=== PATIENT | male | born 1945 | race Caucasian/White ===

== ENCOUNTER 2019-05-15 11:30 | Outpatient (REF) | payer MEDICARE, OTHER, SELFPAY ==
[2019-05-15 21:47] LABS: ALT 18 U/L (12-78); AST 28 U/L (15-37); Albumin 3.8 g/dL (3.4-5.0); Alkaline Phosphatase 105 U/L (46-116); Anion Gap 9.3 mmol/L (3-11); BUN 29 mg/dL (7-18); Bilirubin, Total 0.5 mg/dL (0.2-1.0); CO2 27.7 mmol/L (21.0-32.0); CREATININE 0.97 mg/dL (0.70-1.30); Calcium 9.1 mg/dL (8.5-10.1); Chloride 103 mmol/L (98-107); Glucose 173 mg/dL (70-100); Potassium 4.6 mmol/L (3.5-5.1); Sodium 140 mmol/L (136-145); Total Protein 7.6 g/dL (6.4-8.2)
== END 2019-05-15 11:50 ==
LOC: NCHCN 11:30
PROVIDERS: Visit Provider Nurse Practitioner Family
DX: E11.9 Type 2 diabetes mellitus without complications (principal); E78.5 Hyperlipidemia, unspecified; I48.91 Unspecified atrial fibrillation; R60.9 Edema, unspecified; M70.21 Olecranon bursitis, right elbow; Z86.79 Personal history of other diseases of the circulatory system; E66.9 Obesity, unspecified; F41.9 Anxiety disorder, unspecified
CPT/HCPCS: 80053

== ENCOUNTER 2020-05-27 10:02 | Outpatient (REF) | payer MEDICARE, OTHER, SELFPAY ==
[2020-05-27 21:32] LABS: ALT 26 U/L (16-63); AST 45 U/L (15-37); Albumin 3.5 g/dL (3.4-5.0); Alkaline Phosphatase 187 U/L (46-116); BUN 22 mg/dL (7-18); Bilirubin, Total 0.9 mg/dL (0.2-1.0); CREATININE 1.07 mg/dL (0.70-1.30); Calcium 9.1 mg/dL (8.5-10.1); Chloride 100 mmol/L (98-107); Glucose 307 mg/dL (74-106); Potassium 4.5 mmol/L (3.5-5.1); Sodium 135 mmol/L (136-145)
== END 2020-05-27 10:22 ==
LOC: NCHCN 10:02
PROVIDERS: Visit Provider Nurse Practitioner Family
DX: I48.91 Unspecified atrial fibrillation (principal); E11.9 Type 2 diabetes mellitus without complications; R60.9 Edema, unspecified; F41.9 Anxiety disorder, unspecified; E66.9 Obesity, unspecified; E78.5 Hyperlipidemia, unspecified; Z86.79 Personal history of other diseases of the circulatory system
CPT/HCPCS: 80053

== ENCOUNTER 2020-12-09 15:26 | Outpatient (REF) | payer MEDICARE, OTHER, SELFPAY ==
[2020-12-09 13:52] LABS: ALT 22 U/L (16-63); AST 27 U/L (15-37); Albumin 3.8 g/dL (3.4-5.0); Alkaline Phosphatase 135 U/L (46-116); Bilirubin, Total 0.7 mg/dL (0.2-1.0); GGT 273 U/L (15-85); Total Protein 8.2 g/dL (6.4-8.2)
[2020-12-09 14:03] LABS: Vitamin D 25 Total 45.2 ng/ml (30-100)
[2020-12-09 14:09] LABS: Bilirubin, Direct 0.23 mg/dL (0.00-0.20)
== END 2020-12-09 15:46 ==
LOC: NCHCN 15:26
PROVIDERS: Visit Provider Nurse Practitioner Family
DX: E11.9 Type 2 diabetes mellitus without complications (principal); I48.91 Unspecified atrial fibrillation; G60.9 Hereditary and idiopathic neuropathy, unspecified; E66.8 Other obesity; Z86.79 Personal history of other diseases of the circulatory system; F41.9 Anxiety disorder, unspecified; R74.01 Elevation of levels of liver transaminase levels; R60.0 Localized edema
CPT/HCPCS: 80076; 82306; 82977

== ENCOUNTER 2020-12-29 02:20 | Outpatient (CLI) | payer MEDICARE, OTHER, SELFPAY ==
--- NOTE | 2020-12-29 | DI.US_ITS ---
EXAM: US ABDOMEN CLINICAL HISTORY: ELEVATED ALK PHOS,R74.8 TECHNIQUE: Ultrasound abdomen performed using standard protocol. COMPARISON: No exams were available for comparison FINDINGS: ABDOMINAL AORTA AND IVC: Visualized portions normal caliber. PANCREAS: Normal where visualized. LIVER: There is mild heterogeneity to the echogenicity of the liver. The liver contour is mildly nod ular. The liver measures 11.7 cm in length. Hepatopedal flow in the Portal Vein. GALLBLADDER: No evidence of cholelithiasis. No evidence of wall thickening. No pericholecystic fluid identified. BILIARY SYSTEM: Common bile duct measures < 7 mm. No intrahepatic biliary ductal dilation. REESE'S SIGN: Negative. KIDNEYS: Kidneys are symmetric in size. No evidence of renal calculi. No evidence of hydronephrosis. No renal mass or cyst identified. SPLEEN: Not enlarged. ASCITES: None seen. IMPRESSION: Coarsened hepatic echotexture with mild nodularity of the hepatic contour. The findings raise a ques tion of hepatic cirrhosis. Please correlate clinically. DATA REPOSITORY:
== END 2020-12-29 02:21 | disposition home or self-care (01) ==
PROVIDERS: Visit Provider Nurse Practitioner Family
DX: R74.8 Abnormal levels of other serum enzymes (principal); K76.89 Other specified diseases of liver
CPT/HCPCS: 76700

== ENCOUNTER 2021-06-13 12:46 | Outpatient (REF) | payer MEDICARE, OTHER, SELFPAY ==
[2021-06-13 21:38] LABS: Abs Immature Grans 0.01 10^3/uL (0.0-0.06); Absolute Basophil Count 0.01 10^3/uL (0.0-0.2); Absolute Eosinophil Count 0.06 10^3/uL (0.0-0.7); Absolute Lymphocyte Count 0.98 10^3/uL (1.2-3.4); Absolute Monocyte Count 0.67 10^3/uL (0.1-0.8); Absolute Neutrophil Count 3.52 10^3/uL (1.2-6.7); Basophils % 0.2; Eosinophils % 1.1; HCT 40.2 % (40.0-50.0); HGB 13.2 g/dL (13.5-17.5); Immature Grans % 0.2; Lymphocytes % 18.7; MCH 31.8 pg (27.0-33.0); MCHC 32.8 % (32.0-36.0); MCV 96.9 fL (80-95); MPV 12.4 fL (8.0-11.0); Monocytes % 12.8; Nucleated RBC 0 %; Platelet Count 135 10^3/uL (130-400); RBC 4.15 10^6/uL (4.36-5.78); RDW 13.2 % (11.8-14.1); RDW-SD 47.1 fL; WBC 5.25 10^3/uL (4.4-10.8)
[2021-06-13 22:10] LABS: ALT 18 U/L (16-63); AST 25 U/L (15-37); Albumin 3.8 g/dL (3.4-5.0); Alkaline Phosphatase 118 U/L (46-116); Anion Gap 6.5 mmol/L (3-11); BUN 29 mg/dL (7-18); Bilirubin, Total 0.4 mg/dL (0.2-1.0); CO2 28.5 mmol/L (21.0-32.0); CREATININE 1.1 mg/dL (0.70-1.30); Calcium 9.2 mg/dL (8.5-10.1); Chloride 104 mmol/L (98-107); Glucose 134 mg/dL (74-106); Potassium 4.4 mmol/L (3.5-5.1); Sodium 139 mmol/L (136-145); Total Protein 7.8 g/dL (6.4-8.2)
== END 2021-06-13 12:47 | disposition home or self-care (01) ==
LOC: NCHCN 12:46
PROVIDERS: Visit Provider Nurse Practitioner Family
DX: K74.60 Unspecified cirrhosis of liver (principal); K22.70 Barrett's esophagus without dysplasia; R60.9 Edema, unspecified; E11.9 Type 2 diabetes mellitus without complications; F41.9 Anxiety disorder, unspecified; E78.5 Hyperlipidemia, unspecified; E66.9 Obesity, unspecified
CPT/HCPCS: 80053; 85025

== ENCOUNTER 2021-12-12 15:09 | Outpatient (REF) | payer MEDICARE, OTHER, SELFPAY ==
[2021-12-12 20:29] LABS: Abs Immature Grans 0.01 10^3/uL (0.0-0.06); Absolute Basophil Count 0.02 10^3/uL (0.0-0.2); Absolute Eosinophil Count 0.06 10^3/uL (0.0-0.7); Absolute Lymphocyte Count 0.79 10^3/uL (1.2-3.4); Absolute Monocyte Count 0.63 10^3/uL (0.1-0.8); Absolute Neutrophil Count 4.03 10^3/uL (1.2-6.7); Basophils % 0.4; Eosinophils % 1.1; HCT 44.1 % (40.0-50.0); HGB 14.3 g/dL (13.5-17.5); Immature Grans % 0.2; Lymphocytes % 14.3; MCH 32.3 pg (27.0-33.0); MCHC 32.4 % (32.0-36.0); MCV 99.5 fL (80-95); MPV 11.9 fL (8.0-11.0); Monocytes % 11.4; Neutrophils % 72.6; Nucleated RBC 0 %; Platelet Count 186 10^3/uL (130-400); RBC 4.43 10^6/uL (4.36-5.78); RDW 12.5 % (11.8-14.1); RDW-SD 46.6 fL; WBC 5.54 10^3/uL (4.4-10.8)
[2021-12-12 21:31] LABS: ALT 22 U/L (16-63); AST 32 U/L (15-37); Alkaline Phosphatase 150 U/L (46-116); Anion Gap 9.1 mmol/L (3-11); BUN 32 mg/dL (7-18); Bilirubin, Total 0.6 mg/dL (0.2-1.0); CO2 28.9 mmol/L (21.0-32.0); CREATININE 1.1 mg/dL (0.70-1.30); Calcium 9.8 mg/dL (8.5-10.1); Chloride 97 mmol/L (98-107); Glucose 132 mg/dL (74-106); Magnesium 1.5 mg/dL (1.8-2.4); Potassium 3.7 mmol/L (3.5-5.1); Sodium 135 mmol/L (136-145); Total Protein 8.7 g/dL (6.4-8.2); Vitamin B12 181 pg/mL (193-986)
[2021-12-15 05:50] LABS: Vitamin D 25 Total 33.9 ng/mL (30-100)
== END 2021-12-12 15:10 | disposition home or self-care (01) ==
LOC: NCHCN 15:09
PROVIDERS: Visit Provider Nurse Practitioner Family
DX: R39.9 Unspecified symptoms and signs involving the genitourinary system (principal); E53.8 Deficiency of other specified B group vitamins; E11.9 Type 2 diabetes mellitus without complications; E66.9 Obesity, unspecified; K74.60 Unspecified cirrhosis of liver; I48.91 Unspecified atrial fibrillation
CPT/HCPCS: 80053; 82306; 82607; 83735; 85025

== ENCOUNTER 2021-12-26 14:49 | Outpatient (REF) | payer MEDICARE, OTHER, SELFPAY ==
[2021-12-26 21:48] LABS: Anion Gap 6.9 mmol/L (3-11); BUN 20 mg/dL (7-18); CO2 31.1 mmol/L (21.0-32.0); Calcium 9.4 mg/dL (8.5-10.1); Chloride 96 mmol/L (98-107); Glucose 137 mg/dL (74-106); Potassium 4.1 mmol/L (3.5-5.1); Sodium 134 mmol/L (136-145)
== END 2021-12-26 14:50 | disposition home or self-care (01) ==
LOC: NCHCN 14:49
PROVIDERS: Visit Provider Nurse Practitioner Family
DX: E87.1 Hypo-osmolality and hyponatremia (principal); E83.42 Hypomagnesemia
CPT/HCPCS: 80048

== ENCOUNTER 2022-04-28 20:05 | Outpatient (REF) | payer MEDICARE, OTHER, SELFPAY ==
[2022-04-28 20:43] LABS: Hemoglobin A1C 8.1 % (<5.7)
[2022-04-28 20:48] LABS: ALT 18 U/L (16-63); AST 46 U/L (15-37); Albumin 2.8 g/dL (3.4-5.0); Alkaline Phosphatase 283 U/L (46-116); Anion Gap 8.5 mmol/L (3-11); BUN 14 mg/dL (7-18); Bilirubin, Total 0.4 mg/dL (0.2-1.0); CO2 30.5 mmol/L (21.0-32.0); CREATININE 0.9 mg/dL (0.70-1.30); Calcium 8.8 mg/dL (8.5-10.1); Chloride 98 mmol/L (98-107); Glucose 91 mg/dL (74-106); NT-proBNP 939 pg/mL (<300); Potassium 3.6 mmol/L (3.5-5.1); Sodium 137 mmol/L (136-145); Total Protein 8.4 g/dL (6.4-8.2)
[2022-04-28 20:57] LABS: Bilirubin Negative (Negative); Blood Negative (Negative); Clarity Clear (Clear); Glucose Negative (Negative); Ketones Negative (Negative); Leukocyte Esterase Negative (Negative); Nitrite Negative (Negative); Specific Gravity 1.015 (1.005-1.025); Urobilinogen 0.2 EU/dL (Up TO 0.2); pH 6.5 (5-8)
[2022-04-28 22:34] LABS: COMMENT (LAB VIEW ONLY) < 13.00 mg/dL
== END 2022-04-28 20:06 | disposition home or self-care (01) ==
LOC: LBN 20:05
PROVIDERS: Visit Provider Nurse Practitioner Family
DX: E87.1 Hypo-osmolality and hyponatremia (principal); E11.9 Type 2 diabetes mellitus without complications
CPT/HCPCS: 80053; 81003; 82043; 82570; 83036; 83880

== ENCOUNTER 2022-05-18 15:42 | Outpatient (REF) | payer MEDICARE, OTHER, SELFPAY ==
[2022-05-18 17:39] LABS: Anion Gap 7.4 mmol/L (3-11); BUN 23 mg/dL (7-18); CO2 28.6 mmol/L (21.0-32.0); Calcium 8.9 mg/dL (8.5-10.1); Chloride 99 mmol/L (98-107); Glucose 157 mg/dL (74-106); Potassium 4.1 mmol/L (3.5-5.1); Sodium 135 mmol/L (136-145)
== END 2022-05-18 15:43 | disposition home or self-care (01) ==
LOC: NCHCN 15:42
PROVIDERS: Visit Provider Nurse Practitioner Family
DX: I50.9 Heart failure, unspecified (principal)
CPT/HCPCS: 80048

== ENCOUNTER 2022-08-07 15:12 | Outpatient (REF) | payer MEDICARE, OTHER, SELFPAY ==
[2022-08-07 21:03] LABS: Anion Gap 8.3 mmol/L (3-11); BUN 22 mg/dL (7-18); CO2 26.7 mmol/L (21.0-32.0); Calcium 8.6 mg/dL (8.5-10.1); Chloride 102 mmol/L (98-107); Creatine Kinase 75 U/L (39-308); Estimated GFR 76.56 (mL/min/1.73m2); Glucose 67 mg/dL (74-106); Magnesium 1.8 mg/dL (1.8-2.4); NT-proBNP 1015 pg/mL (<300); Potassium 3.7 mmol/L (3.5-5.1); Sodium 137 mmol/L (136-145)
[2022-08-07 21:43] LABS: Vitamin B12 857 pg/mL (193-986)
== END 2022-08-07 15:13 | disposition home or self-care (01) ==
LOC: NCHCN 15:12
PROVIDERS: Visit Provider Nurse Practitioner Family
DX: I50.9 Heart failure, unspecified (principal); E87.1 Hypo-osmolality and hyponatremia; E83.42 Hypomagnesemia; E53.8 Deficiency of other specified B group vitamins; I48.91 Unspecified atrial fibrillation; K74.60 Unspecified cirrhosis of liver; K22.70 Barrett's esophagus without dysplasia; R39.89 Other symptoms and signs involving the genitourinary system
CPT/HCPCS: 80048; 82550; 82607; 83735; 83880

== ENCOUNTER 2022-08-29 16:23 | Outpatient (REF) | payer MEDICARE, OTHER, SELFPAY ==
[2022-08-29 19:37] LABS: Anion Gap 9.4 mmol/L (3-11); BUN 33 mg/dL (7-18); CO2 27.6 mmol/L (21.0-32.0); CREATININE 1.1 mg/dL (0.70-1.30); Calcium 8.9 mg/dL (8.5-10.1); Chloride 99 mmol/L (98-107); Estimated GFR 68.29 (mL/min/1.73m2); Glucose 134 mg/dL (74-106); Sodium 136 mmol/L (136-145)
== END 2022-08-29 16:24 | disposition home or self-care (01) ==
LOC: NCHCN 16:23
PROVIDERS: Visit Provider Nurse Practitioner Family
DX: I35.0 Nonrheumatic aortic (valve) stenosis (principal); I50.9 Heart failure, unspecified
CPT/HCPCS: 80048

== ENCOUNTER 2022-12-11 21:10 | Outpatient (REF) | payer MEDICARE, OTHER, SELFPAY ==
[2022-12-11 21:38] LABS: Abs Immature Grans 0.01 10^3/uL (0.0-0.06); Absolute Basophil Count 0.01 10^3/uL (0.0-0.2); Absolute Eosinophil Count 0.05 10^3/uL (0.0-0.7); Absolute Lymphocyte Count 0.67 10^3/uL (1.2-3.4); Absolute Monocyte Count 0.47 10^3/uL (0.1-0.8); Absolute Neutrophil Count 2.63 10^3/uL (1.2-6.7); Basophils % 0.3; Eosinophils % 1.3; HCT 30.3 % (40.0-50.0); HGB 9.8 g/dL (13.5-17.5); Immature Grans % 0.3; Lymphocytes % 17.4; MCHC 32.3 % (32.0-36.0); MCV 99 fL (80-95); MPV 12.1 fL (8.0-11.0); Monocytes % 12.2; Neutrophils % 68.5; Platelet Count 118 10^3/uL (130-400); RBC 3.06 10^6/uL (4.36-5.78); RDW 14.1 % (11.8-14.1); WBC 3.84 10^3/uL (4.4-10.8)
[2022-12-11 21:44] LABS: ALT 15 U/L (16-63); AST 28 U/L (15-37); Albumin 3.4 g/dL (3.4-5.0); Alkaline Phosphatase 162 U/L (46-116); Anion Gap 4.6 mmol/L (3-11); BUN 34 mg/dL (7-18); Bilirubin, Total 0.5 mg/dL (0.2-1.0); CO2 30.4 mmol/L (21.0-32.0); CREATININE 1.1 mg/dL (0.70-1.30); Calcium 8.7 mg/dL (8.5-10.1); Chloride 98 mmol/L (98-107); Estimated GFR 68.29 (mL/min/1.73m2); Glucose 187 mg/dL (74-106); Potassium 4.4 mmol/L (3.5-5.1); Sodium 133 mmol/L (136-145); Total Protein 8.2 g/dL (6.4-8.2)
== END 2022-12-11 21:11 | disposition home or self-care (01) ==
LOC: NCHCN 21:10
PROVIDERS: Visit Provider Nurse Practitioner Family
DX: K74.60 Unspecified cirrhosis of liver (principal); E87.1 Hypo-osmolality and hyponatremia; E53.8 Deficiency of other specified B group vitamins; R74.8 Abnormal levels of other serum enzymes
CPT/HCPCS: 80053; 85025

== ENCOUNTER 2022-12-18 14:05 | Outpatient (REF) | payer MEDICARE, OTHER, SELFPAY ==
--- OUTSIDE RECORDS SUMMARY | 2022-12-18 14:06 | XMS_ITS | CCD ---
:1945 Author Care Team Providers Name Role Phone JAREN OLVERA Attending Physician Unavailable Vital Signs Unknown or Not Available. Allergies Unknown or Not Available. Procedures Unknown or Not Available. History of Immunizations Unknown or Not Available. Problems Problem Code Start Date Resolved Date Status AFIB 80050852 Active Hypertension 90386449 Active Pneumonia 025513305 Active Acute kidney injury 07519503 Active Influenza 2158960 Active CHF 22437837 Active Type 2 diabetes 50023422 Active Gout 25462646 Active Hyperlipidemia 86418359 03/12/2022 Resolved GERD 910943120 03/12/2022 Resolved CHF 55621625 03/12/2022 Resolved Stroke 528530037 03/12/2022 Resolved Results Unknown or Not Available. Active Medications Unknown or Not Available. Medications Administered During Visit Unknown or Not Available. Encounters Encounter Diagnosis Diagnosis Code Start Date Cirrhosis of liver 21478782 12/27/2021 Social History Smoking Status Code Start Date End Date Never smoker [id number] Patient Decision Aids Unknown or Not Available. Discharge Instructions You were admitted to [facility] on 12/27/2021 07:43 with a principal diagnosis of Unspecified cirrhosis of liver You were discharged from [facility] on 12/27/2021 07:43 Should you have any questions prior to d ischarge, please contact a member of your healthcare team. If you have left the spital and have any questions, please contact your primary care physician. Chief Complaint and Reason For Visit Chief Complaint Date of Onset CIRRHOSIS Function Status Description Code Date Type Status Age-related cognitive decline 733480457 03/12/2022 Cognitive Active Plan of Care Unknown or Not Available. Referral/Transition of Care Unknown or Not Available.
--- OUTSIDE RECORDS SUMMARY | 2022-12-18 14:07 | XMS_ITS | CCD ---
:1945 Author Care Team Providers Name Role Phone SONG REY Attending Physician Unavailable Vital Signs Unknown or Not Available. Allergies Allergy Code Allergy Type Reaction Status No Known Drug Allergies 0 No known drug allergies Active Procedures Unknown or Not Available. History of Immunizations Unknown or Not Available. Problems Problem Code Start Date Resolved Date Status AFIB 64408823 Active Hypertension 18726783 Active Pneumonia 401225027 Active Acute kidney injury 30361988 Active Influenza 4994802 Active CHF 46208190 Active Type 2 diabetes 80624519 Active Gout 74071771 Active Hyperlipidemia 31563970 03/12/2022 Resolved GERD 611434313 03/12/2022 Resolved CHF 01252448 03/12/2022 Resolved Stroke 716126198 03/12/2022 Resolved Results Unknown or Not Available. Active Medications Unknown or Not Available. Medications Administered During Visit Unknown or Not Available. Encounters Encounter Diagnosis Diagnosis Code Start Date Influenza due to identified novel influenza A virus with J09 X1 03/12/2022 pneumonia Social History Unknown or Not Available. Patient Decision Aids Unknown or Not Available. Discharge Instructions You were admitted to [facility] on 03/12/2022 13:37 with a principal diagnosis of Influenza due to identified novel inf luenza A virus with pneumonia You were discharged from [facility] on 03/12/2022 15:48 Should you have any questions prior to d ischarge, please contact a member of your healthcare team. If you have left the spital and have any questions, please contact your primary care physician. Chief Complaint and Reason For Visit Unknown or Not Available. Function Status Description Code Date Type Status Age-related cognitive decline 756973529 03/12/2022 Cognitive Active Plan of Care Unknown or Not Available. Referral/Transition of Care Unknown or Not Available.
--- OUTSIDE RECORDS SUMMARY | 2022-12-18 14:07 | XMS_ITS | CCD ---
:1945 Author Care Team Providers Name Role Phone SHAMEKA HOFFMAN Attending Physician Unavailable Vital Signs Vital Sign Value Unit Date/Time Recent/Initial? BP Systolic 106 mmHg 03/19/2022 17:00 Initial VS BP Diastolic 66 mmHg 03/19/2022 17:00 Initial VS Respiratory Rate 20 bpm 03/19/2022 17:00 Initial VS Heart Rate 106 bpm 03/19/2022 17:00 Initial VS O2 % BldC Oximetry 97 % 03/19/2022 17:00 Initi al VS Body Temperature 36 degrees 03/19/2022 17:00 Initial VS BP Systolic 107 mmHg 03/23/2022 09:12 Most Recent VS BP Diastolic 96 mmHg 03/23/2022 09:12 Most Recent VS Respiratory Rate 18 bpm 03/23/2022 09:12 Most Re cent VS Heart Rate 100 bpm 03/23/2022 09:12 Most Recent VS O2 % BldC Oximetry 98 % 03/23/2022 09:12 Most Recent VS Body Temperature 36.2 degrees 03/23/2022 09:12 Most Re cent VS Allergies Allergy Code Allergy Type Reaction Status No Known Drug Allergies 0 No known drug allergies Active Procedures Unknown or Not Available. History of Immunizations Unknown or Not Available. Problems Problem Code Start Date Resolved Date Status AFIB 90358281 Active Hypertension 35095164 Active Pneumonia 307508794 Active Acute kidney injury 83808252 Active Influenza 2520169 Active CHF 97557646 Active Type 2 diabetes 50490708 Active Gout 53575985 Active Results BASIC METABOLIC PANEL (BMP) - Collect Da te/Time: 03/23/2022 06:50 Test Name Code Test Result Test Units Test Ref Range GLUCOSE 2345-7 172 mg/dL L=70 H=116 BUN 3094-0 25 mg/dL L=6 H=25 CREATININE 2160-0 0.79 mg/dL L=0.67 H=1.17 SODIUM SERUM 2951-2 132 mmol/L L=136 H=145 POTASSIUM SERUM 2823-3 4.3 mmol/L L=3.4 H=5.2 CHLORIDE SERUM 2075-0 96 mmol/L L=96 H=110 CARBON DIOXIDE (CO2) 2028-9 29 mmol/L L=22 H= 34 ANION GAP 96166-2 6.8 mmol/L CALCIUM SERUM 04800-2 8.7 mg/dL L=8.2 H=10.2 AGE 76 years eGFR (non-Afr.Amer.) 27525-5 95 mL/min eGFR (Afr-[place]) 56319-9 115 mL/min BASIC METABOLIC PANEL (BMP) - Collect Da te/Time: 03/21/2022 06:30 Test Name Code Test Result Test Units Test Ref Range GLUCOSE 2345-7 263 mg/dL L=70 H=116 BUN 3094-0 27 mg/dL L=6 H=25 CREATININE 2160-0 0.83 mg/dL L=0.67 H=1.17 SODIUM SERUM 2951-2 130 mmol/L L=136 H=145 POTASSIUM SERUM 2823-3 4.7 mmol/L L=3.4 H=5.2 CHLORIDE SERUM 2075-0 96 mmol/L L=96 H=110 CARBON DIOXIDE (CO2) 2028-9 30 mmol/L L=22 H= 34 ANION GAP 89979-8 3.8 mmol/L CALCIUM SERUM 20112-0 8.6 mg/dL L=8.2 H=10.2 AGE 76 years eGFR (non-Afr.Amer.) 12760-1 90 mL/min eGFR (Afr-[place]) 47992-2 108 mL/min GLUCOSE FINGER/HEEL CAPILLARY - Collect Date/Time: 03/23/2022 07:48 Test Name Code Test Result Test Units Test Ref Range GLUCOSE CAP 187 mg/dL L=70 H=116 GLUCOSE FINGER/HEEL CAPILLARY - Collect Date/Time: 03/22/2022 20:40 Test Name Code Test Result Test Units Test Ref Range GLUCOSE CAP 208 mg/dL L=70 H=116 GLUCOSE FINGER/HEEL CAPILLARY - Collect Date/Time: 03/22/2022 16:40 Test Name Code Test Result Test Units Test Ref Range GLUCOSE CAP 252 mg/dL L=70 H=116 GLUCOSE FINGER/HEEL CAPILLARY - Collect Date/Time: 03/22/2022 11:28 Test Name Code Test Result Test Units Test Ref Range GLUCOSE CAP 258 mg/dL L=70 H=116 GLUCOSE FINGER/HEEL CAPILLARY - Collect Date/Time: 03/22/2022 07:51 Test Name Code Test Result Test Units Test Ref Range GLUCOSE CAP 200 mg/dL L=70 H=116 GLUCOSE FINGER/HEEL CAPILLARY - Collect Date/Time: 03/21/2022 19:48 Test Name Code Test Result Test Units Test Ref Range GLUCOSE CAP 299 mg/dL L=70 H=116 GLUCOSE FINGER/HEEL CAPILLARY - Collect Date/Time: 03/21/2022 16:56 Test Name Code Test Result Test Units Test Ref Range GLUCOSE CAP 258 mg/dL L=70 H=116 GLUCOSE FINGER/HEEL CAPILLARY - Collect Date/Time: 03/21/2022 11:58 Test Name Code Test Result Test Units Test Ref Range GLUCOSE CAP 235 mg/dL L=70 H=116 GLUCOSE FINGER/HEEL CAPILLARY - Collect Date/Time: 03/21/2022 07:45 Test Name Code Test Result Test Units Test Ref Range GLUCOSE CAP 277 mg/dL L=70 H=116 GLUCOSE FINGER/HEEL CAPILLARY - Collect Date/Time: 03/20/2022 20:36 Test Name Code Test Result Test Units Test Ref Range GLUCOSE CAP 273 mg/dL L=70 H=116 GLUCOSE FINGER/HEEL CAPILLARY - Collect Date/Time: 03/20/2022 17:01 Test Name Code Test Result Test Units Test Ref Range GLUCOSE CAP 264 mg/dL L=70 H=116 GLUCOSE FINGER/HEEL CAPILLARY - Collect Date/Time: 03/20/2022 11:49 Test Name Code Test Result Test Units Test Ref Range GLUCOSE CAP 180 mg/dL L=70 H=116 GLUCOSE FINGER/HEEL CAPILLARY - Collect Date/Time: 03/20/2022 08:16 Test Name Code Test Result Test Units Test Ref Range GLUCOSE CAP 244 mg/dL L=70 H=116 GLUCOSE FINGER/HEEL CAPILLARY - Collect Date/Time: 03/19/2022 21:07 Test Name Code Test Result Test Units Test Ref Range GLUCOSE CAP 177 mg/dL L=70 H=116 GLUCOSE FINGER/HEEL CAPILLARY - Collect Date/Time: 03/19/2022 17:06 Test Name Code Test Result Test Units Test Ref Range GLUCOSE CAP 223 mg/dL L=70 H=116 CBC W/ DIFFERENTIAL* - Collect Date/Time : 03/23/2022 06:50 Test Name Code Test Result Test Units Test Ref Range WBC 6690-2 11.60 th/cmm L=5.00 H=10.00 NEUT % 81.2 % L=40.0 H=80.0 LYMPH % 9.6 % L=10.0 H=50.0 MONO % 78884-2 8.1 % L=2.0 H=12.0 EOS % 0.1 % L=0.0 H=8.0 BASO % 0.1 % L=0.0 H=3.0 IG % 2514-8 0.9 % L=0.0 H=1.1 NRBC % 49832-8 0.0 % L=0.0 H=0.0 NEUT abs count 751-8 9.4 th/cmm L=1.6 H=8.4 LYMPH abs count 731-0 1.1 th/cmm L=1.5 H=4.0 MONO abs count 742-7 0.9 th/cmm L=0.2 H=1.0 EOS abs count 711-2 0.0 th/cmm L=0.0 H=0.5 BASO abs count 704-7 0.0 th/cmm L=0.0 H=0.2 IG abs count 82644-2 0.1 th/cmm L=0.0 H=0.1 NRBC abs count 97208-7 0.0 mil/cmm L=0.0 H=0.0 RBC 789-8 3.59 mil/cmm L=4.30 H=6.20 HEMOGLOBIN 718-7 11.6 gm/dL L=13.0 H=17.0 HEMATOCRIT 4544-3 35 % L=45 H=52 MCV 787-2 96 fL L=82 H=92 MCH 785-6 32.3 pg L=27.0 H=31.0 MCHC 786-4 33.6 % L=32.0 H=36.0 RDW-SD 788-0 49.0 fL L=39.0 H=49.0 PLATELET COUNT 777-3 353 th/cmm L=150 H=450 CBC W/ DIFFERENTIAL* - Collect Date/Time : 03/21/2022 06:30 Test Name Code Test Result Test Units Test Ref Range WBC 6690-2 11.69 th/cmm L=5.00 H=10.00 NEUT % 85.8 % L=40.0 H=80.0 LYMPH % 7.2 % L=10.0 H=50.0 MONO % 84000-8 5.5 % L=2.0 H=12.0 EOS % 0.1 % L=0.0 H=8.0 BASO % 0.1 % L=0.0 H=3.0 IG % 2514-8 1.3 % L=0.0 H=1.1 NRBC % 43889-3 0.0 % L=0.0 H=0.0 NEUT abs count 751-8 10.0 th/cmm L=1.6 H=8.4 LYMPH abs count 731-0 0.8 th/cmm L=1.5 H=4.0 MONO abs count 742-7 0.6 th/cmm L=0.2 H=1.0 EOS abs count 711-2 0.0 th/cmm L=0.0 H=0.5 BASO abs count 704-7 0.0 th/cmm L=0.0 H=0.2 IG abs count 28694-4 0.2 th/cmm L=0.0 H=0.1 NRBC abs count 07288-1 0.0 mil/cmm L=0.0 H=0.0 RBC 789-8 3.61 mil/cmm L=4.30 H=6.20 HEMOGLOBIN 718-7 11.5 gm/dL L=13.0 H=17.0 HEMATOCRIT 4544-3 35 % L=45 H=52 MCV 787-2 96 fL L=82 H=92 MCH 785-6 31.9 pg L=27.0 H=31.0 MCHC 786-4 33.2 % L=32.0 H=36.0 RDW-SD 788-0 48.4 fL L=39.0 H=49.0 PLATELET COUNT 777-3 306 th/cmm L=150 H=450 NGOZI COVID RHEONIX* - Collect Date/Adams e: 03/22/2022 14:00 Test Name Code Test Result Test Units Test Ref Range [facility]- 10429-4 INPATIENT/ED N/A SARS COV2 RNA: 81619-8 NEGATIVE N/A REFERENCE RAN GE: NEGAT Active Medications Medications Administered During Visit Medication Dose Units Frequency Route Date/Time of L ast Dose PANTOPRAZOLE TABLET: 40MG 40 MG Q7AM PO 03/23/2022 06:23 APIXABAN TAB: 5MG 5 MG BID PO 022 09:12 SERTRALINE TABLET: 100MG 100 MG DAILY PO 03/23/2022 09:12 PRAVASTATIN TABLET: 20MG 20 MG DAILY PO 03/23/2022 09:12 GLIMEPIRIDE TABLET: 2MG 2 MG DAILY WITH FOOD PO 03/23/2022 09:12 INSULIN INJ PEN LISPRO: PRN SUBQ 0 03/23/2022 09:24 300UNITS/3ML MetFORMIN TABLET: 850MG 850 MG BID PO 0 03/23/2022 09:12 PredniSONE TABLET: 20MG 20 MG BID PO 0 03/21/2022 08:35 COLCHICINE TABLET: 0.6MG 0.6 MG DAILY PO 03/21/2022 08:35 ACETAMINOPHEN TABLET: 975 MG TID PO 09:12 325MG INDOMETHACIN CAPSULE: 25MG 25 MG DAILY PO 03/21/2022 08:35 PredniSONE TABLET: 10MG 10 MG BID PO 0 03/23/2022 09:12 FUROSEMIDE TABLET: 20MG 20 MG X1 PO 0 03/22/2022 17:45 FUROSEMIDE TABLET: 20MG 20 MG DAILY PO 0 03/23/2022 09:12 Encounters Encounter Diagnosis Diagnosis Code Start Date Weakness R531 03/19/2022 Social History Smoking Status Code Start Date End Date Never smoker 407542681 Patient Decision Aids Unknown or Not Available. Discharge Instructions You were admitted to [facility] on 03/19/2022 10:42 with a principal diagnosis of Weakness You had the following tests done: GLUCO SE FINGER/HEEL CAPILLARY BASIC METABOLIC PANEL (BMP) CBC W/ DIFFERENTIAL* GLUCOSE FINGER/HEEL CAPILLARY GLUCOSE FINGER/HEEL CAPILLARY [facility] COVID RHEONIX* GLUCOSE FINGER/HEEL CAPILLARY GLUCOSE FINGER/HEEL CAPILLARY GLUCOSE FINGER/HEEL CAPILLARY GLUCOSE FINGER/HEEL CAPILLARY GLUCOSE FINGER/HEEL CAPILLARY GLUCOSE FINGER/THI L CAPILLARY BASIC METABOLIC PANEL (BMP) CBC W/ DIFFERENTIAL* GLUCOSE FINGER/HEEL CAP ILLARY GLUCOSE FINGER/HEEL CAPILLARY GLUCOSE FINGER/HEEL CAPILLARY GLUCOSE FINGER/THI L CAPILLARY GLUCOSE FINGER/HEEL CAPILLARY GLUCOSE FINGER/HEEL CAPILLARY You were discharged from [facility] on 03/23/2022 11:10 Should you have any questions prior to d ischarge, please contact a member of your healthcare team. If you have left the spital and have any questions, please contact your primary care physician. Chief Complaint and Reason For Visit Chief Complaint Date of Onset REHAB 03/20/2022 Function Status Description Code Date Type Status Age-related cognitive decline 478326960 03/12/2022 Cognitive Active Plan of Care Unknown or Not Available. Referral/Transition of Care Unknown or Not Available.
--- OUTSIDE RECORDS SUMMARY | 2022-12-18 14:07 | XMS_ITS | CCD ---
:1945 Author Care Team Providers Name Role Phone ELIJAH BARAKAT Attending Physician Unavailable Vital Signs Unknown or Not Available. Allergies Allergy Code Allergy Type Reaction Status No Known Drug Allergies 0 No known drug allergies Active Procedures Unknown or Not Available. History of Immunizations Unknown or Not Available. Problems Problem Code Start Date Resolved Date Status AFIB 67139972 Active Hypertension 40045442 Active Pneumonia 733849363 Active Acute kidney injury 21305040 Active Influenza 7119574 Active CHF 43788033 Active Type 2 diabetes 83236097 Active Gout 46977640 Active Hyperlipidemia 96218661 03/12/2022 Resolved GERD 952536937 03/12/2022 Resolved CHF 65123156 03/12/2022 Resolved Stroke 999850947 03/12/2022 Resolved Results Unknown or Not Available. Active Medications Unknown or Not Available. Medications Administered During Visit Unknown or Not Available. Encounters Encounter Diagnosis Diagnosis Code Start Date Influenza due to other identified influenza virus with J1000 03/12/2022 unspecified type of pneumonia Social History Smoking Status Code Start Date End Date Never smoker 982023641 Patient Decision Aids Unknown or Not Available. Discharge Instructions You were admitted to [facility] on 03/12/2022 00:26 with a principal diagnosis of Influenza due to other identified inf luenza virus with unspecified type of pneumonia You were discharged from [facility] on 03/19/2022 00:34 Should you have any questions prior to d ischarge, please contact a member of your healthcare team. If you have left the ho spital and have any questions, please contact your primary care physician. Chief Complaint and Reason For Visit Unknown or Not Available. Function Status Description Code Date Type Status Age-related cognitive decline 159743399 03/12/2022 Cognitive Active Plan of Care Unknown or Not Available. Referral/Transition of Care Unknown or Not Available.
--- OUTSIDE RECORDS SUMMARY | 2022-12-18 14:07 | XMS_ITS | CCD ---
[...] Code Start Date Resolved Date Status AFIB 35969871 Active Hypertension 16269392 Active Pneumonia 050467945 Active Acute kidney injury 77959341 Active Influenza 5458087 Active CHF 16824386 Active Type 2 diabetes 68008659 Active Gout 31596792 Active Results Unknown or Not Available. Active Medications Unknown or Not Available. Medications Administered During Visit Unknown or Not Available. Encounters Encounter Diagnosis Diagnosis Code Start Date Unspecified cirrhosis of liver K7460 Social History Smoking Status Code Start Date End Date Never smoker 763454395 Patient Decision Aids Unknown or Not Available. Discharge Instructions You were admitted to [facility] on 06/29/2022 08:32 with a principal diagnosis of Unspecified cirrhosis of liver You were discharged from [facility] on 06/29/2022 08:32 Should you have any questions prior to d ischarge, please contact a member of your healthcare team. If you have left the spital and have any questions, please contact your primary care physician. Chief Complaint and Reason For Visit Chief Complaint Date of Onset CIRRHOSIS Function Status Description Code Date Type Status Age-related cognitive decline 245499615 03/12/2022 Cognitive Active Plan of Care Unknown or Not Available. Referral/Transition of Care Unknown or Not Available.
--- OUTSIDE RECORDS SUMMARY | 2022-12-18 14:07 | XMS_ITS | CCD ---
:1945 Author Care Team Providers Name Role Phone ELIJAH BARAKAT Attending Physician Unavailable PHILIPPE PERES Er Physician 1 Unavailable SONG REY (Secondary) Physician UnavailROSHNI Li Registered Nurse Unavailable Vital Signs Vital Sign Value Unit Date/Time Recent/Initial? BMI (Body Mass Index) 27.2 kg/m^2 03/12/2022 14:24 In itial VS Weight Measured 211.86 lbs 03/12/2022 14:24 Initial VS Height 74 in 03/12/2022 14:24 Initial VS BSA (Body Surface Area) 2.24 m^2 03/12/2022 14:24 Initial VS BP Systolic 89 mmHg 03/12/2022 15:23 Initial VS BP Diastolic 60 mmHg 03/12/2022 15:23 Initial VS Respiratory Rate 28 bpm 03/12/2022 15:23 Initial VS Heart Rate 100 bpm 03/12/2022 15:23 Initial VS O2 % BldC Oximetry 92 % 03/12/2022 15:23 Initi al VS Body Temperature 36.1 degrees 03/12/2022 15:23 Initial VS BMI (Body Mass Index) 28.48 kg/m^2 03/15/2022 10:[address] Recent VS Weight Measured 209.99 lbs 03/15/2022 10:40 Most Rec ent VS Height 72 in 03/15/2022 10:40 Most Recent VS BSA (Body Surface Area) 2.2 m^2 03/15/2022 10:40 Most Recent VS BP Systolic 115 mmHg 03/19/2022 07:04 Most Recent VS BP Diastolic 69 mmHg 03/19/2022 07:04 Most Recent VS Respiratory Rate 20 bpm 03/19/2022 07:04 Most Re cent VS Heart Rate 108 bpm 03/19/2022 07:04 Most Recent VS O2 % BldC Oximetry 96 % 03/19/2022 07:04 Most Recent VS Body Temperature 35.9 degrees 03/19/2022 07:04 Most Re cent VS Allergies Allergy Code Allergy Type Reaction Status No Known Drug Allergies 0 No known drug allergies Active Procedures Unknown or Not Available. History of Immunizations Unknown or Not Available. Problems Problem Code Start Date Resolved Date Status AFIB 64485275 Active Hypertension 69196145 Active Pneumonia 601396257 Active Acute kidney injury 17697270 Active Influenza 1172075 Active CHF 05027158 Active Type 2 diabetes 90490097 Active Gout 13857455 Active Hyperlipidemia 24410089 03/12/2022 Resolved GERD 800851358 03/12/2022 Resolved CHF 22553592 03/12/2022 Resolved Stroke 954269282 03/12/2022 Resolved Results BASIC METABOLIC PANEL (BMP) - Collect Da te/Time: 03/18/2022 07:04 Test Name Code Test Result Test Units Test Ref Range GLUCOSE 2345-7 246 mg/dL L=70 H=116 BUN 3094-0 43 mg/dL L=6 H=25 CREATININE 2160-0 0.96 mg/dL L=0.67 H=1.17 SODIUM SERUM 2951-2 133 mmol/L L=136 H=145 POTASSIUM SERUM 2823-3 4.5 mmol/L L=3.4 H=5.2 CHLORIDE SERUM 2075-0 98 mmol/L L=96 H=110 CARBON DIOXIDE (CO2) 2028-9 27 mmol/L L=22 H= 34 ANION GAP 53886-9 7.6 mmol/L CALCIUM SERUM 91247-5 8.7 mg/dL L=8.2 H=10.2 AGE 76 years eGFR (non-Afr.Amer.) 68268-2 76 mL/min eGFR (Afr-Serbian) 13137-3 92 mL/min BASIC METABOLIC PANEL (BMP) - Collect Da te/Time: 03/16/2022 06:30 Test Name Code Test Result Test Units Test Ref Range GLUCOSE 2345-7 223 mg/dL L=70 H=116 BUN 3094-0 42 mg/dL L=6 H=25 CREATININE 2160-0 0.93 mg/dL L=0.67 H=1.17 SODIUM SERUM 2951-2 134 mmol/L L=136 H=145 POTASSIUM SERUM 2823-3 3.4 mmol/L L=3.4 H=5.2 CHLORIDE SERUM 2075-0 97 mmol/L L=96 H=110 CARBON DIOXIDE (CO2) 2028-9 30 mmol/L L=22 H= 34 ANION GAP 86355-8 7.3 mmol/L CALCIUM SERUM 81416-4 9.1 mg/dL L=8.2 H=10.2 AGE 76 years eGFR (non-Afr.Amer.) 40130-7 79 mL/min eGFR (Afr-Serbian) 29753-2 95 mL/min BASIC METABOLIC PANEL (BMP) - Collect Da te/Time: 03/15/2022 08:45 Test Name Code Test Result Test Units Test Ref Range GLUCOSE 166 mg/dL L=70 H=116 BUN 44 mg/dL L=6 H=25 CREATININE 1.13 mg/dL L=0.67 H=1.17 SODIUM SERUM 134 mmol/L L=136 H=145 POTASSIUM SERUM 2.9 mmol/L L=3.4 H=5.2 CHLORIDE SERUM 97 mmol/L L=96 H=110 CARBON DIOXIDE (CO2) 27 mmol/L L=22 H= 34 ANION GAP 10.1 mmol/L CALCIUM SERUM 9.0 mg/dL L=8.2 H=10.2 AGE 76 years eGFR (non-Afr.Amer.) 63 mL/min eGFR (Afr-Serbian) 76 mL/min BASIC METABOLIC PANEL (BMP) - Collect Da te/Time: 03/13/2022 07:30 Test Name Code Test Result Test Units Test Ref Range GLUCOSE 2345-7 136 mg/dL L=70 H=116 BUN 3094-0 56 mg/dL L=6 H=25 CREATININE 2160-0 2.07 mg/dL L=0.67 H=1.17 SODIUM SERUM 2951-2 131 mmol/L L=136 H=145 POTASSIUM SERUM 2823-3 3.4 mmol/L L=3.4 H=5.2 CHLORIDE SERUM 2075-0 97 mmol/L L=96 H=110 CARBON DIOXIDE (CO2) 2028-9 25 mmol/L L=22 H= 34 ANION GAP 05374-6 8.7 mmol/L CALCIUM SERUM 88419-6 8.2 mg/dL L=8.2 H=10.2 AGE 76 years eGFR (non-Afr.Amer.) 23618-0 31 mL/min eGFR (Afr-Serbian) 23107-5 38 mL/min BNP (PRO-B NATRIURETIC PEPTIDE) - [facility] t Date/Time: 03/12/2022 14:30 Test Name Code Test Result Test Units Test Ref Range NT-proBNP 54919-6 9421.0 pg/mL L=0.0 H=450 COMPREHENSIVE METABOLIC PANEL (CMP) - Pa llect Date/Time: 03/12/2022 14:30 Test Name Code Test Result Test Units Test Ref Range GLUCOSE 2345-7 221 mg/dL L=70 H=116 BUN 3094-0 41 mg/dL L=6 H=25 CREATININE 2160-0 2.27 mg/dL L=0.67 H=1.17 SODIUM SERUM 2951-2 130 mmol/L L=136 H=145 POTASSIUM SERUM 2823-3 4.0 mmol/L L=3.4 H=5.2 CHLORIDE SERUM 2075-0 93 mmol/L L=96 H=110 CARBON DIOXIDE (CO2) 2028-9 24 mmol/L L=22 H= 34 ANION GAP 63244-4 12.6 mmol/L CALCIUM SERUM 75735-6 9.1 mg/dL L=8.2 H=10.2 BILIRUBIN TOTAL 1975-2 1.3 mg/dL L=0.0 H=1.3 ALK. PHOS. 6768-6 116 U/L L=46 H=116 SGOT (AST) 1920-8 110 U/L L=15 H=37 SGPT (ALT) 1742-6 38 U/L L=12 H=78 TOTAL PROTEIN 2885-2 8.5 gm/dL L=6.0 H=8.0 ALBUMIN 1751-7 3.5 gm/dL L=3.4 H=5.0 AGE 76 years eGFR (non-Afr.Amer.) 06073-2 28 mL/min eGFR (Afr-Serbian) 33872-5 34 mL/min GLUCOSE FINGER/HEEL CAPILLARY - Collect Date/Time: 03/19/2022 11:59 Test Name Code Test Result Test Units Test Ref Range GLUCOSE CAP 280 mg/dL L=70 H=116 GLUCOSE FINGER/HEEL CAPILLARY - Collect Date/Time: 03/19/2022 08:08 Test Name Code Test Result Test Units Test Ref Range GLUCOSE CAP 212 mg/dL L=70 H=116 GLUCOSE FINGER/HEEL CAPILLARY - Collect Date/Time: 03/18/2022 20:56 Test Name Code Test Result Test Units Test Ref Range GLUCOSE CAP 166 mg/dL L=70 H=116 GLUCOSE FINGER/HEEL CAPILLARY - Collect Date/Time: 03/18/2022 16:41 Test Name Code Test Result Test Units Test Ref Range GLUCOSE CAP 242 mg/dL L=70 H=116 GLUCOSE FINGER/HEEL CAPILLARY - Collect Date/Time: 03/18/2022 11:35 Test Name Code Test Result Test Units Test Ref Range GLUCOSE CAP 189 mg/dL L=70 H=116 GLUCOSE FINGER/HEEL CAPILLARY - Collect Date/Time: 03/18/2022 08:05 Test Name Code Test Result Test Units Test Ref Range GLUCOSE CAP 231 mg/dL L=70 H=116 GLUCOSE FINGER/HEEL CAPILLARY - Collect Date/Time: 03/17/2022 19:44 Test Name Code Test Result Test Units Test Ref Range GLUCOSE CAP 164 mg/dL L=70 H=116 GLUCOSE FINGER/HEEL CAPILLARY - Collect Date/Time: 03/17/2022 16:54 Test Name Code Test Result Test Units Test Ref Range GLUCOSE CAP 301 mg/dL L=70 H=116 GLUCOSE FINGER/HEEL CAPILLARY - Collect Date/Time: 03/17/2022 11:56 Test Name Code Test Result Test Units Test Ref Range GLUCOSE CAP 223 mg/dL L=70 H=116 GLUCOSE FINGER/HEEL CAPILLARY - Collect Date/Time: 03/17/2022 07:59 Test Name Code Test Result Test Units Test Ref Range GLUCOSE CAP 226 mg/dL L=70 H=116 GLUCOSE FINGER/HEEL CAPILLARY - Collect Date/Time: 03/16/2022 21:11 Test Name Code Test Result Test Units Test Ref Range GLUCOSE CAP 184 mg/dL L=70 H=116 GLUCOSE FINGER/HEEL CAPILLARY - Collect Date/Time: 03/16/2022 17:19 Test Name Code Test Result Test Units Test Ref Range GLUCOSE CAP 229 mg/dL L=70 H=116 GLUCOSE FINGER/HEEL CAPILLARY - Collect Date/Time: 03/16/2022 11:45 Test Name Code Test Result Test Units Test Ref Range GLUCOSE CAP 122 mg/dL L=70 H=116 GLUCOSE FINGER/HEEL CAPILLARY - Collect Date/Time: 03/16/2022 08:26 Test Name Code Test Result Test Units Test Ref Range GLUCOSE CAP 259 mg/dL L=70 H=116 GLUCOSE FINGER/HEEL CAPILLARY - Collect Date/Time: 03/15/2022 21:14 Test Name Code Test Result Test Units Test Ref Range GLUCOSE CAP 197 mg/dL L=70 H=116 GLUCOSE FINGER/HEEL CAPILLARY - Collect Date/Time: 03/15/2022 17:33 Test Name Code Test Result Test Units Test Ref Range GLUCOSE CAP 138 mg/dL L=70 H=116 GLUCOSE FINGER/HEEL CAPILLARY - Collect Date/Time: 03/15/2022 11:59 Test Name Code Test Result Test Units Test Ref Range GLUCOSE CAP 215 mg/dL L=70 H=116 GLUCOSE FINGER/HEEL CAPILLARY - Collect Date/Time: 03/15/2022 07:47 Test Name Code Test Result Test Units Test Ref Range GLUCOSE CAP 160 mg/dL L=70 H=116 GLUCOSE FINGER/HEEL CAPILLARY - Collect Date/Time: 03/14/2022 20:31 Test Name Code Test Result Test Units Test Ref Range GLUCOSE CAP 153 mg/dL L=70 H=116 GLUCOSE FINGER/HEEL CAPILLARY - Collect Date/Time: 03/14/2022 16:54 Test Name Code Test Result Test Units Test Ref Range GLUCOSE CAP 117 mg/dL L=70 H=116 GLUCOSE FINGER/HEEL CAPILLARY - Collect Date/Time: 03/14/2022 12:07 Test Name Code Test Result Test Units Test Ref Range GLUCOSE CAP 202 mg/dL L=70 H=116 GLUCOSE FINGER/HEEL CAPILLARY - Collect Date/Time: 03/14/2022 07:50 Test Name Code Test Result Test Units Test Ref Range GLUCOSE CAP 152 mg/dL L=70 H=116 GLUCOSE FINGER/HEEL CAPILLARY - Collect Date/Time: 03/13/2022 19:41 Test Name Code Test Result Test Units Test Ref Range GLUCOSE CAP 178 mg/dL L=70 H=116 GLUCOSE FINGER/HEEL CAPILLARY - Collect Date/Time: 03/13/2022 17:07 Test Name Code Test Result Test Units Test Ref Range GLUCOSE CAP 184 mg/dL L=70 H=116 GLUCOSE FINGER/HEEL CAPILLARY - Collect Date/Time: 03/13/2022 12:17 Test Name Code Test Result Test Units Test Ref Range GLUCOSE CAP 153 mg/dL L=70 H=116 GLUCOSE FINGER/HEEL CAPILLARY - Collect Date/Time: 03/13/2022 08:57 Test Name Code Test Result Test Units Test Ref Range GLUCOSE CAP 123 mg/dL L=70 H=116 GLUCOSE FINGER/HEEL CAPILLARY - Collect Date/Time: 03/12/2022 21:07 Test Name Code Test Result Test Units Test Ref Range GLUCOSE CAP 186 mg/dL L=70 H=116 GLUCOSE FINGER/HEEL CAPILLARY - Collect Date/Time: 03/12/2022 17:32 Test Name Code Test Result Test Units Test Ref Range GLUCOSE CAP 187 mg/dL L=70 H=116 MAGNESIUM SERUM* - Collect Date/Time: 07:04 Test Name Code Test Result Test Units Test Ref Range MAGNESIUM 95275-5 1.7 mg/dL L=1.8 H=2.4 MAGNESIUM SERUM* - Collect Date/Time: 06:30 Test Name Code Test Result Test Units Test Ref Range MAGNESIUM 41250-5 2.1 mg/dL L=1.8 H=2.4 TROPONIN HIGH SENSITIVITY* - Collect Sean e/Time: 03/12/2022 14:30 Test Name Code Test Result Test Units Test Ref Range TROPONIN HS 41.1 pg/mL L=0.0 H=60.4 Specimen seq. ADM. N/A URIC ACID SERUM - Collect Date/Time: 06:30 Test Name Code Test Result Test Units Test Ref Range URIC ACID SERUM 4.2 mg/dL L=3.0 H=8.6 CBC W/ DIFFERENTIAL* - Collect Date/Time : 03/16/2022 06:30 Test Name Code Test Result Test Units Test Ref Range WBC 6690-2 8.02 th/cmm L=5.00 H=10.00 NEUT % 81.5 % L=40.0 H=80.0 LYMPH % 7.5 % L=10.0 H=50.0 MONO % 48968-3 10.1 % L=2.0 H=12.0 EOS % 0.0 % L=0.0 H=8.0 BASO % 0.0 % L=0.0 H=3.0 IG % 2514-8 0.9 % L=0.0 H=1.1 NRBC % 73444-7 0.0 % L=0.0 H=0.0 NEUT abs count 751-8 6.5 th/cmm L=1.6 H=8.4 LYMPH abs count 731-0 0.6 th/cmm L=1.5 H=4.0 MONO abs count 742-7 0.8 th/cmm L=0.2 H=1.0 EOS abs count 711-2 0.0 th/cmm L=0.0 H=0.5 BASO abs count 704-7 0.0 th/cmm L=0.0 H=0.2 IG abs count 69048-0 0.1 th/cmm L=0.0 H=0.1 NRBC abs count 06785-3 0.0 mil/cmm L=0.0 H=0.0 RBC 789-8 3.64 mil/cmm L=4.30 H=6.20 HEMOGLOBIN 718-7 11.7 gm/dL L=13.0 H=17.0 HEMATOCRIT 4544-3 34 % L=45 H=52 MCV 787-2 95 fL L=82 H=92 MCH 785-6 32.1 pg L=27.0 H=31.0 MCHC 786-4 34.0 % L=32.0 H=36.0 RDW-SD 788-0 47.7 fL L=39.0 H=49.0 PLATELET COUNT 777-3 138 th/cmm L=150 H=450 CBC W/ DIFFERENTIAL* - Collect Date/Time : 03/15/2022 08:45 Test Name Code Test Result Test Units Test Ref Range WBC 6690-2 11.88 th/cmm L=5.00 H=10.00 NEUT % 88.5 % L=40.0 H=80.0 LYMPH % 3.9 % L=10.0 H=50.0 MONO % 25293-9 6.8 % L=2.0 H=12.0 EOS % 0.0 % L=0.0 H=8.0 BASO % 0.2 % L=0.0 H=3.0 IG % 2514-8 0.6 % L=0.0 H=1.1 NRBC % 12870-5 0.0 % L=0.0 H=0.0 NEUT abs count 751-8 10.5 th/cmm L=1.6 H=8.4 LYMPH abs count 731-0 0.5 th/cmm L=1.5 H=4.0 MONO abs count 742-7 0.8 th/cmm L=0.2 H=1.0 EOS abs count 711-2 0.0 th/cmm L=0.0 H=0.5 BASO abs count 704-7 0.0 th/cmm L=0.0 H=0.2 IG abs count 81859-0 0.1 th/cmm L=0.0 H=0.1 NRBC abs count 54737-8 0.0 mil/cmm L=0.0 H=0.0 RBC 789-8 3.80 mil/cmm L=4.30 H=6.20 HEMOGLOBIN 718-7 12.3 gm/dL L=13.0 H=17.0 HEMATOCRIT 4544-3 36 % L=45 H=52 MCV 787-2 94 fL L=82 H=92 MCH 785-6 32.4 pg L=27.0 H=31.0 MCHC 786-4 34.4 % L=32.0 H=36.0 RDW-SD 788-0 47.7 fL L=39.0 H=49.0 PLATELET COUNT 777-3 127 th/cmm L=150 H=450 CBC W/ DIFFERENTIAL* - Collect Date/Time : 03/13/2022 07:30 Test Name Code Test Result Test Units Test Ref Range WBC 6690-2 8.20 th/cmm L=5.00 H=10.00 NEUT % 91.3 % L=40.0 H=80.0 LYMPH % 2.3 % L=10.0 H=50.0 MONO % 00417-8 4.8 % L=2.0 H=12.0 EOS % 0.0 % L=0.0 H=8.0 BASO % 0.1 % L=0.0 H=3.0 IG % 2514-8 1.5 % L=0.0 H=1.1 NRBC % 63486-2 0.0 % L=0.0 H=0.0 NEUT abs count 751-8 7.5 th/cmm L=1.6 H=8.4 LYMPH abs count 731-0 0.2 th/cmm L=1.5 H=4.0 MONO abs count 742-7 0.4 th/cmm L=0.2 H=1.0 EOS abs count 711-2 0.0 th/cmm L=0.0 H=0.5 BASO abs count 704-7 0.0 th/cmm L=0.0 H=0.2 IG abs count 25033-8 0.1 th/cmm L=0.0 H=0.1 NRBC abs count 59157-8 0.0 mil/cmm L=0.0 H=0.0 RBC 789-8 3.47 mil/cmm L=4.30 H=6.20 HEMOGLOBIN 718-7 11.1 gm/dL L=13.0 H=17.0 HEMATOCRIT 4544-3 33 % L=45 H=52 MCV 787-2 95 fL L=82 H=92 MCH 785-6 32.0 pg L=27.0 H=31.0 MCHC 786-4 33.7 % L=32.0 H=36.0 RDW-SD 788-0 46.6 fL L=39.0 H=49.0 PLATELET COUNT 777-3 71 th/cmm L=150 H=450 BANDS % 13 METAS % 1 N/A Toxic gran 1+ N/A Dohle bodies 1+ N/A Vaccuol neutr 2+ N/A CBC W/ DIFFERENTIAL* - Collect Date/Time : 03/12/2022 14:30 Test Name Code Test Result Test Units Test Ref Range WBC 6690-2 10.51 th/cmm L=5.00 H=10.00 NEUT % 87.0 % L=40.0 H=80.0 LYMPH % 3.2 % L=10.0 H=50.0 MONO % 64708-4 7.7 % L=2.0 H=12.0 EOS % 0.0 % L=0.0 H=8.0 BASO % 0.1 % L=0.0 H=3.0 IG % 2514-8 2.0 % L=0.0 H=1.1 NRBC % 87864-0 0.0 % L=0.0 H=0.0 NEUT abs count 751-8 9.1 th/cmm L=1.6 H=8.4 LYMPH abs count 731-0 0.3 th/cmm L=1.5 H=4.0 MONO abs count 742-7 0.8 th/cmm L=0.2 H=1.0 EOS abs count 711-2 0.0 th/cmm L=0.0 H=0.5 BASO abs count 704-7 0.0 th/cmm L=0.0 H=0.2 IG abs count 33405-6 0.2 th/cmm L=0.0 H=0.1 NRBC abs count 04792-4 0.0 mil/cmm L=0.0 H=0.0 RBC 789-8 3.95 mil/cmm L=4.30 H=6.20 HEMOGLOBIN 718-7 12.8 gm/dL L=13.0 H=17.0 HEMATOCRIT 4544-3 38 % L=45 H=52 MCV 787-2 97 fL L=82 H=92 MCH 785-6 32.4 pg L=27.0 H=31.0 MCHC 786-4 33.3 % L=32.0 H=36.0 RDW-SD 788-0 48.7 fL L=39.0 H=49.0 PLATELET COUNT 777-3 66 th/cmm L=150 H=450 BANDS % 40 METAS % 5 N/A NGOZI COVID FLU RSV GENEXPERT - Collect Date/Time: 03/12/2022 14:30 Test Name Code Test Result Test Units Test Ref Range COVID 81494-9 NEGATIVE N/A Normal: Negativ e INFLUENZA A DNA 27444-0 POSITIVE N/A Normal: Nega tive INFLUENZA B DNA 79242-2 NEGATIVE N/A Normal: Nega tive RSV DNA 07957-8 NEGATIVE N/A Normal: Negativ e Active Medications Medications Administered During Visit Medication Dose Units Frequency Route Date/Time of L ast Dose CefTRIAXone IVPB: 1 GM X1 022 15:57 1GM/50ML AZITHROMYCIN IVPB: 500 MG X1 2021 16:44 500MG/250ML SODIUM CHLORIDE 0.9% 1000 ML CONT 02/24 10:26 1000ML ACETAMINOPHEN INJ IVPB: 1000 MG PRN Q6H 0 03/14/2022 03:16 1000MG/100ML ACETAMINOPHEN TABLET: 975 MG PRN Q6H PO 22:30 325MG AZITHROMYCIN IVPB: 500 MG Q24H 2021 18:53 500MG/250ML CefTRIAXone IVPB: 1 GM Q24H 15:00 1GM/50ML PANTOPRAZOLE TABLET: 40MG 40 MG Q7AM PO 03/19/2022 06:17 APIXABAN TAB: 5MG 5 MG BID PO 08:27 SERTRALINE TABLET: 100MG 100 MG DAILY PO 03/19/2022 08:27 PRAVASTATIN TABLET: 20MG 20 MG DAILY PO 03/19/2022 08:27 GLIMEPIRIDE TABLET: 2MG 2 MG DAILY WITH FOOD PO 03/19/2022 08:32 INSULIN INJ PEN LISPRO: 6 Unit(s) PRN SUBQ 0 03/19/2022 08:19 300UNITS/3ML OSELTAMIVIR PHOSPHATE 75 MG BID PO 09:01 CAPSULE: 75MG MetFORMIN TABLET: 850MG 850 MG BID PO 0 03/19/2022 08:31 OSELTAMIVIR PHOSPHATE 75 MG DAILY PO 08:56 CAPSULE: 75MG AZITHROMYCIN TABLET: 250 MG DAILY PO 02/25 08:26 250MG POTASSIUM CHL TABLET: 20 MEQ X1 PO 10:41 20mEq POTASSIUM CHL TABLET: 20 MEQ TID WITH FOOD PO 03/16/2022 12:01 20mEq PredniSONE TABLET: 20MG 20 MG X1 PO 0 03/15/2022 19:54 PredniSONE TABLET: 20MG 20 MG DAILY WITH FOOD PO 03/16/2022 08:45 PredniSONE TABLET: 20MG 20 MG BID PO 0 03/19/2022 08:27 COLCHICINE TABLET: 0.6MG 0.6 MG X1 PO 03/16/2022 12:52 COLCHICINE TABLET: 0.6MG 0.6 MG DAILY PO 03/19/2022 08:27 FUROSEMIDE INJ SDV: 20 MG X1 IVP 03/17 12:57 20MG/2ML POTASSIUM CHL TABLET: 20 MEQ DAILY WITH FOOD PO 03/18/2022 08:36 20mEq POTASSIUM CHL TABLET: 20 MEQ X1 PO 12:57 20mEq ACETAMINOPHEN TABLET: 975 MG TID PO 08:27 325MG ACETAMINOPHEN TABLET: 975 MG X1 PO 13:57 325MG INDOMETHACIN CAPSULE: 25 MG X1 PO 13:57 25MG INDOMETHACIN CAPSULE: 25 MG DAILY PO 08:27 25MG Encounters Encounter Diagnosis Diagnosis Code Start Date Pneumonia, unspecified organism [id number] 03/12/20 Social History Smoking Status Code Start Date End Date Never smoker [id number] Patient Decision Aids Unknown or Not Available. Discharge Instructions You were admitted to [facility] on 03/12/2022 15:48 with a principal diagnosis of Pneumonia, unspecified organism You had the following tests done: GLUCO SE FINGER/HEEL CAPILLARY GLUCOSE FINGER/HEEL CAPILLARY GLUCOSE FINGER/HEEL CAPILLARY GLUCOSE FINGER/HEEL CAPILLARY GLUCOSE FINGER/HEEL CAPILLARY GLUCOSE FINGER/THI L CAPILLARY BASIC METABOLIC PANEL (BMP) MAGNESIUM SERUM* GLUCOSE FINGER/HEEL CAP ILLARY GLUCOSE FINGER/HEEL CAPILLARY GLUCOSE FINGER/HEEL CAPILLARY GLUCOSE FINGER/THI L CAPILLARY GLUCOSE FINGER/HEEL CAPILLARY GLUCOSE FINGER/HEEL CAPILLARY GLUCOSE FI NGER/HEEL CAPILLARY GLUCOSE FINGER/HEEL CAPILLARY BASIC METABOLIC PANEL (BMP) CB C W/ DIFFERENTIAL* MAGNESIUM SERUM* URIC ACID SERUM GLUCOSE FINGER/HEEL CAPILLARY GLUC OSE FINGER/HEEL CAPILLARY GLUCOSE FINGER/HEEL CAPILLARY BASIC METABOLIC PANEL (BMP) CB C W/ DIFFERENTIAL* GLUCOSE FINGER/HEEL CAPILLARY GLUCOSE FINGER/HEEL CAPILLARY GLUCOSE FINGER/HEEL CAPILLARY GLUCOSE FINGER/HEEL CAPILLARY GLUCOSE FINGER/THI L CAPILLARY GLUCOSE FINGER/HEEL CAPILLARY GLUCOSE FINGER/HEEL CAPILLARY GLUCOSE FI NGER/HEEL CAPILLARY GLUCOSE FINGER/HEEL CAPILLARY BASIC METABOLIC PANEL (BMP) CB C W/ DIFFERENTIAL* GLUCOSE FINGER/HEEL CAPILLARY GLUCOSE FINGER/HEEL CAPILLARY BNP (PRO-B NATRIURETIC PEPTIDE) CBC W/ DIFFERENTIAL* COMPREHENSIVE METABOLIC [place] (CMP) [facility] COVID FLU RSV GENEXPERT TROPONIN HIGH SENSITIVITY* You were discharged from [facility] on 03/19/2022 10:07 Should you have any questions prior to d ischarge, please contact a member of your healthcare team. If you have left the ho spital and have any questions, please contact your primary care physician. 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 Referral/Transition of Care Unknown or Not Available.
--- OUTSIDE RECORDS SUMMARY | 2022-12-18 14:07 | XMS_ITS | CCD ---
:1945 Author Care Team Providers Name Role Phone SHAMEKA HOFFMAN Attending Physician Unavailable Vital Signs Unknown or Not Available. Allergies Allergy Code Allergy Type Reaction Status No Known Drug Allergies 0 No known drug allergies Active Procedures Unknown or Not Available. History of Immunizations Unknown or Not Available. Problems Problem Code Start Date Resolved Date Status AFIB 23777188 Active Hypertension 81580002 Active Pneumonia 313094784 Active Acute kidney injury 17973820 Active Influenza 3993204 Active CHF 40949306 Active Type 2 diabetes 11708171 Active Gout 75028794 Active Results Unknown or Not Available. Active Medications Unknown or Not Available. Medications Administered During Visit Unknown or Not Available. Encounters Encounter Diagnosis Diagnosis Code Start Date Weakness R531 03/19/2022 Social History Smoking Status Code Start Date End Date Never smoker [id number] Patient Decision Aids Unknown or Not Available. Discharge Instructions You were admitted to [facility] on 03/19/2022 00:57 with a principal diagnosis of Weakness You were discharged from [facility] on 03/23/2022 00:57 Should you have any questions prior to d ischarge, please contact a member of your healthcare team. If you have left the ho spital and have any questions, please contact your primary care physician. Chief Complaint and Reason For Visit Unknown or Not Available. Function Status Description Code Date Type Status Age-related cognitive decline [id number] 03/12/2022 Cognitive Active Plan of Care Unknown or Not Available. Referral/Transition of Care Unknown or Not Available.
--- OUTSIDE RECORDS SUMMARY | 2022-12-18 14:08 | XMS_ITS | CCD ---
:1945 Author Care Team Providers Name Role Phone RAUL KHAN Attending Physician Unavailable RAUL KHAN Rounding (Secondary) Physician Unavailab le Vital Signs Unknown or Not Available. Allergies Allergy Code Allergy Type Reaction Status No Known Drug Allergies 0 No known drug allergies Active Procedures Unknown or Not Available. History of Immunizations Unknown or Not Available. Problems Problem Code Start Date Resolved Date Status AFIB 72672660 Active Hypertension 28520293 Active Pneumonia 119361128 Active Acute kidney injury 93952799 Active Influenza 5514881 Active CHF 85240701 Active Type 2 diabetes 64002413 Active Gout 09287431 Active Results Unknown or Not Available. Active Medications Unknown or Not Available. Medications Administered During Visit Unknown or Not Available. Encounters Encounter Diagnosis Diagnosis Code Start Date Abnormal findings on diagnostic imaging of heart and [id number] 08/23/2022 coronary circulation Social History Smoking Status Code Start Date End Date Never smoker [id number] Patient Decision Aids Unknown or Not Available. Discharge Instructions You were admitted to [facility] on 08/23/2022 07:20 with a principal diagnosis of Abnormal findings on diagnostic imagi ng of heart and coronary circulation You were discharged from [facility] on 08/23/2022 00:00 Should you have any questions prior to d ischarge, please contact a member of your healthcare team. If you have left the spital and have any questions, please contact your primary care physician. Chief Complaint and Reason For Visit Unknown or Not Available. Function Status Description Code Date Type Status Age-related cognitive decline [id number] 03/12/2022 Cognitive Active Plan of Care Unknown or Not Available. Referral/Transition of Care Unknown or Not Available.
[2022-12-18 15:55] LABS: PTT Activated 30.2 sec (21.0-27.5)
[2022-12-18 20:49] LABS: Reticulocyte 1.6 % (0.5-2.4)
[2022-12-18 21:33] LABS: Ferritin 32 ng/mL (26-388); Folate 12.4 ng/mL (8.6-20.0); Vitamin B12 589 pg/mL (193-986)
[2022-12-18 22:13] LABS: Iron 57 ug/dL (65-175); Total Iron Binding Capacity 346 ug/dL (250-450); Transferrin Sat 16 % (20-55)
[2022-12-19 07:08] LABS: Abs Immature Grans 0.01 10^3/uL (0.0-0.06); Absolute Basophil Count 0.01 10^3/uL (0.0-0.2); Absolute Eosinophil Count 0.04 10^3/uL (0.0-0.7); Absolute Lymphocyte Count 0.57 10^3/uL (1.2-3.4); Absolute Monocyte Count 0.55 10^3/uL (0.1-0.8); Basophils % 0.2; Eosinophils % 0.9; HCT 30.2 % (40.0-50.0); HGB 9.7 g/dL (13.5-17.5); Immature Grans % 0.2; Lymphocytes % 13.3; MCHC 32.1 % (32.0-36.0); MCV 100 fL (80-95); MPV 12.2 fL (8.0-11.0); Monocytes % 12.9; Neutrophils % 72.5; Platelet Count 110 10^3/uL (130-400); RBC 3.03 10^6/uL (4.36-5.78); RDW 14.6 % (11.8-14.1); RDW-SD 53.2 fL; WBC 4.27 10^3/uL (4.4-10.8)
== END 2022-12-18 14:06 | disposition home or self-care (01) ==
LOC: NCHCN 14:05
PROVIDERS: Visit Provider Nurse Practitioner Family
DX: D69.6 Thrombocytopenia, unspecified (principal); D64.9 Anemia, unspecified; E87.1 Hypo-osmolality and hyponatremia; E83.42 Hypomagnesemia; E11.9 Type 2 diabetes mellitus without complications
CPT/HCPCS: 82607; 82728; 82746; 83540; 83550; 85025; 85045; 85610; 85730

== ENCOUNTER 2023-01-08 16:01 | Outpatient (REF) | payer MEDICARE, OTHER, SELFPAY ==
[2023-01-08 21:17] LABS: Anion Gap 6.4 mmol/L (3-11); BUN 26 mg/dL (7-18); CO2 28.6 mmol/L (21.0-32.0); CREATININE 1.1 mg/dL (0.70-1.30); Calcium 9.1 mg/dL (8.5-10.1); Chloride 101 mmol/L (98-107); Estimated GFR 68.29 (mL/min/1.73m2); Glucose 99 mg/dL (74-106); Potassium 4.9 mmol/L (3.5-5.1); Sodium 136 mmol/L (136-145)
== END 2023-01-08 16:02 | disposition home or self-care (01) ==
LOC: NCHCN 16:01
PROVIDERS: Visit Provider Nurse Practitioner Family
DX: E11.9 Type 2 diabetes mellitus without complications (principal); E83.42 Hypomagnesemia
CPT/HCPCS: 80048

== ENCOUNTER 2023-01-15 17:52 | Outpatient (REF) | payer MEDICARE, OTHER, SELFPAY ==
[2023-01-15 20:48] LABS: Abs Immature Grans 0.01 10^3/uL (0.0-0.06); Absolute Basophil Count 0.02 10^3/uL (0.0-0.2); Absolute Eosinophil Count 0.05 10^3/uL (0.0-0.7); Absolute Lymphocyte Count 0.68 10^3/uL (1.2-3.4); Absolute Monocyte Count 0.59 10^3/uL (0.1-0.8); Absolute Neutrophil Count 2.48 10^3/uL (1.2-6.7); Basophils % 0.5; Eosinophils % 1.3; HCT 27.5 % (40.0-50.0); HGB 8.7 g/dL (13.5-17.5); Immature Grans % 0.3; Lymphocytes % 17.8; MCH 30.9 pg (27.0-33.0); MCHC 31.6 % (32.0-36.0); MCV 98 fL (80-95); MPV 11.4 fL (8.0-11.0); Monocytes % 15.4; Neutrophils % 64.7; Platelet Count 153 10^3/uL (130-400); RBC 2.82 10^6/uL (4.36-5.78); RDW 14.2 % (11.8-14.1); RDW-SD 50.4 fL; WBC 3.83 10^3/uL (4.4-10.8)
[2023-01-15 21:11] LABS: Anion Gap 5.2 mmol/L (3-11); BUN 23 mg/dL (7-18); CO2 31.8 mmol/L (21.0-32.0); CREATININE 1.3 mg/dL (0.70-1.30); Calcium 8.9 mg/dL (8.5-10.1); Chloride 101 mmol/L (98-107); Estimated GFR 55.88 (mL/min/1.73m2); Glucose 119 mg/dL (74-106); NT-proBNP 358 pg/mL (<300); Potassium 4.4 mmol/L (3.5-5.1); Sodium 138 mmol/L (136-145)
== END 2023-01-15 17:53 | disposition home or self-care (01) ==
LOC: NCHCN 17:52
PROVIDERS: Visit Provider Nurse Practitioner Family
DX: I50.9 Heart failure, unspecified (principal); D69.6 Thrombocytopenia, unspecified; I35.0 Nonrheumatic aortic (valve) stenosis; D64.9 Anemia, unspecified
CPT/HCPCS: 80048; 83880; 85025

== ENCOUNTER 2023-01-16 14:54 | Outpatient (REF) | payer MEDICARE, OTHER, SELFPAY ==
[2023-01-16 16:23] LABS: Ferritin 33 ng/mL (26-388)
[2023-01-16 16:33] LABS: Iron 40 ug/dL (65-175)
== END 2023-01-16 14:55 | disposition home or self-care (01) ==
LOC: NCHCN 14:54
PROVIDERS: Visit Provider Nurse Practitioner Family
DX: D64.9 Anemia, unspecified (principal)
CPT/HCPCS: 82728; 83540

== ENCOUNTER 2023-07-03 15:13 | Outpatient (REF) | payer MEDICARE, OTHER, SELFPAY ==
[2023-07-03 15:53] LABS: Abs Immature Grans 0.01 10^3/uL (0.0-0.06); Absolute Basophil Count 0.01 10^3/uL (0.0-0.2); Absolute Eosinophil Count 0.16 10^3/uL (0.0-0.7); Absolute Lymphocyte Count 0.79 10^3/uL (1.2-3.4); Basophils % 0.3; Eosinophils % 4.6; HCT 32.2 % (40.0-50.0); HGB 10.2 g/dL (13.5-17.5); Immature Grans % 0.3; Lymphocytes % 22.8; MCH 27.8 pg (27.0-33.0); MCHC 31.7 % (32.0-36.0); MCV 88 fL (80-95); MPV 12.3 fL (8.0-11.0); Monocytes % 14.4; Neutrophils % 57.6; Platelet Count 145 10^3/uL (130-400); RBC 3.67 10^6/uL (4.36-5.78); RDW-SD 54.5 fL; WBC 3.47 10^3/uL (4.4-10.8)
[2023-07-03 16:03] LABS: Iron 55 ug/dL (65-175); Total Iron Binding Capacity 278 ug/dL (250-450); Transferrin Sat 20 % (20-55)
[2023-07-03 16:33] LABS: ALT 13 U/L (16-63); AST 36 U/L (15-37); Albumin 2.7 g/dL (3.4-5.0); Alkaline Phosphatase 292 U/L (46-116); Anion Gap 4.1 mmol/L (3-11); BUN 23 mg/dL (7-18); Bilirubin, Total 0.4 mg/dL (0.2-1.0); CO2 33.9 mmol/L (21.0-32.0); CREATININE 0.9 mg/dL (0.70-1.30); Calcium 9.1 mg/dL (8.5-10.1); Chloride 98 mmol/L (98-107); Estimated GFR 86.88 (mL/min/1.73m2); Ferritin 74 ng/mL (26-388); Glucose 90 mg/dL (74-106); Potassium 4.1 mmol/L (3.5-5.1); Sodium 136 mmol/L (136-145); TSH (W/Ref FT4) 2.69 uIU/mL (0.36-3.74); Total Protein 8.5 g/dL (6.4-8.2); Vitamin B12 828 pg/mL (193-986)
[2023-07-03 16:48] LABS: Hemoglobin A1C 6.3 % (<5.7)
== END 2023-07-03 15:14 | disposition home or self-care (01) ==
LOC: NCHCN 15:13
PROVIDERS: Visit Provider Nurse Practitioner Family
DX: Z51.81 Encounter for therapeutic drug level monitoring (principal); E11.9 Type 2 diabetes mellitus without complications; I48.91 Unspecified atrial fibrillation; E53.8 Deficiency of other specified B group vitamins; R53.83 Other fatigue
CPT/HCPCS: 80053; 82607; 82728; 83036; 83540; 83550; 84443; 85025

== ENCOUNTER 2023-07-24 20:37 | Outpatient (REF) | payer MEDICARE, OTHER, SELFPAY ==
[2023-07-24 22:21] LABS: HCT 31.5 % (40.0-50.0); HGB 10.1 g/dL (13.5-17.5); MCH 28.4 pg (27.0-33.0); MCHC 32.1 % (32.0-36.0); MCV 89 fL (80-95); MPV 11.8 fL (8.0-11.0); Platelet Count 128 10^3/uL (130-400); RBC 3.56 10^6/uL (4.36-5.78); RDW 18.8 % (11.8-14.1); RDW-SD 61.7 fL; WBC 3.98 10^3/uL (4.4-10.8)
== END 2023-07-24 20:38 | disposition home or self-care (01) ==
LOC: LBN 20:37
PROVIDERS: Visit Provider Nurse Practitioner Family
DX: K92.1 Melena
CPT/HCPCS: 85027

== ENCOUNTER 2023-08-17 22:18 | Outpatient (REF) | payer MEDICARE, OTHER, SELFPAY ==
[2023-08-17 18:42] LABS: HCT 31.2 % (40.0-50.0); HGB 9.9 g/dL (13.5-17.5); MCH 28.9 pg (27.0-33.0); MCHC 31.7 % (32.0-36.0); MCV 91 fL (80-95); MPV 12.9 fL (8.0-11.0); Platelet Count 131 10^3/uL (130-400); RBC 3.43 10^6/uL (4.36-5.78); RDW 18.8 % (11.8-14.1); WBC 4.11 10^3/uL (4.4-10.8)
== END 2023-08-17 22:19 | disposition home or self-care (01) ==
LOC: NCHCN 22:18
PROVIDERS: Visit Provider Nurse Practitioner Family
DX: D64.9 Anemia, unspecified (principal)
CPT/HCPCS: 85027

== ENCOUNTER 2023-09-14 20:26 | Outpatient (REF) | payer MEDICARE, OTHER, SELFPAY ==
[2023-09-14 14:45] LABS: Abs Immature Grans 0.02 10^3/uL (0.0-0.06); Absolute Basophil Count 0.01 10^3/uL (0.0-0.2); Absolute Eosinophil Count 0.05 10^3/uL (0.0-0.7); Absolute Lymphocyte Count 0.87 10^3/uL (1.2-3.4); Absolute Monocyte Count 0.63 10^3/uL (0.1-0.8); Absolute Neutrophil Count 4.44 10^3/uL (1.2-6.7); Basophils % 0.2; Eosinophils % 0.8; HCT 33.7 % (40.0-50.0); HGB 10.7 g/dL (13.5-17.5); Immature Grans % 0.3; Lymphocytes % 14.5; MCH 29.1 pg (27.0-33.0); MCHC 31.8 % (32.0-36.0); MCV 92 fL (80-95); Monocytes % 10.5; Neutrophils % 73.7; Platelet Count 183 10^3/uL (130-400); RBC 3.68 10^6/uL (4.36-5.78); RDW 16.8 % (11.8-14.1); RDW-SD 57.1 fL; WBC 6.02 10^3/uL (4.4-10.8)
[2023-09-14 14:53] LABS: Iron 52 ug/dL (65-175); Total Iron Binding Capacity 312 ug/dL (250-450); Transferrin Sat 17 % (20-55)
[2023-09-14 15:24] LABS: Hemoglobin A1C 7.3 % (<5.7)
[2023-09-14 15:30] LABS: ALT 11 U/L (16-63); AST 30 U/L (15-37); Albumin 2.7 g/dL (3.4-5.0); Alkaline Phosphatase 224 U/L (46-116); Anion Gap 9.1 mmol/L (3-11); BUN 28 mg/dL (7-18); Bilirubin, Total 0.4 mg/dL (0.2-1.0); CO2 31.9 mmol/L (21.0-32.0); CREATININE 0.8 mg/dL (0.70-1.30); Chloride 96 mmol/L (98-107); Estimated GFR 89.47 (mL/min/1.73m2); Ferritin 77 ng/mL (26-388); Glucose 185 mg/dL (74-106); Magnesium 1.4 mg/dL (1.8-2.4); Potassium 3.5 mmol/L (3.5-5.1); Sodium 137 mmol/L (136-145); TSH (W/Ref FT4) 4.11 uIU/mL (0.36-3.74)
[2023-09-14 15:32] LABS: Vitamin B12 > 2000 pg/mL (193-986)
[2023-09-14 15:48] LABS: FREE T4 1.23 ng/dL (0.76-1.46)
== END 2023-09-14 20:27 | disposition home or self-care (01) ==
LOC: NCHCN 20:26
PROVIDERS: Visit Provider Nurse Practitioner Family
DX: D64.9 Anemia, unspecified (principal); E11.9 Type 2 diabetes mellitus without complications; K59.00 Constipation, unspecified; R63.4 Abnormal weight loss; D69.6 Thrombocytopenia, unspecified; I48.91 Unspecified atrial fibrillation
CPT/HCPCS: 80053; 82607; 82728; 83036; 83540; 83550; 83735; 84439; 84443; 85025